=== PATIENT | female | born 1930 | race Caucasian/White ===

== ENCOUNTER → 2016-08-28 | Outpatient (CLI) | payer MEDICARE, OTHER ==
[~2016-08-28] VITALS: Ht 154.9 cm; Wt 48.5 kg
[~2016-08-28] MED LIST: AMLO10TA82 PO; ASPI-892; CALC-80; CALC600T; CLOP75TA PO; CODE118S2 PO; CQ 10; D-3; HCT25T; KCL10CCR; KCL20TCR; LEVO75TA57; LOVA20TA2 PO; LVST20T; LVT.025T; LVT.05T; LVT.1T; MAGN400T6; MAGNESIUM; NORVASC; OMG1KC; RLX60T; UBID200C; ZOLEDRONATE 5 MG/100 ML (RECLAST) BTL IV ONE; [UNRECOGNIZED DRUG - CODE]
[2016-08-28 13:53] VITALS: BP 164/59
[2016-08-28 14:45] VITALS: BP 164/59
== END ==
LOC: SDC 13:10
PROVIDERS: ATTEND Internal Medicine
DX: M81.0 Age-related osteoporosis without current pathological fracture (principal)
CPT/HCPCS: 96365

== ENCOUNTER → 2016-09-20 | Outpatient (CLI) | payer MEDICARE, OTHER ==
[~2016-09-20] MED LIST changes: -ZOLEDRONATE 5 MG/100 ML (RECLAST) BTL IV ONE
--- NOTE | 2016-09-20 12:32 | Diagnostic Imaging Report ---
EXAM: Left hip. INDICATION: Fell, left hip pain. FINDINGS: AP and lateral views were obtained. There are no prior studies available for comparison. There is no fracture, dislocation or acute bony abnormality evident. 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 The soft tissues are unremarkable. IMPRESSION: There is no evidence for an acute bony abnormality. Dictated by: Dictated on workstation # [id number]
== END ==
LOC: RAD 09:33
PROVIDERS: ATTEND Internal Medicine
DX: M25.552 Pain in left hip (principal); X58.XXXA Exposure to other specified factors, initial encounter; Y99.8 Other external cause status
CPT/HCPCS: 73502

== ENCOUNTER → 2017-08-22 | Outpatient (CLI) | payer MEDICARE, OTHER ==
--- NOTE | 2017-08-22 12:08 | Diagnostic Imaging Report ---
INDICATION: Fall with back pain. TIME OF EXAM: 11:28 a.m. Three views of the lumbar spine were obtained. Curvature is normal. There is minimal anterolisthesis of L3 on L4 and mild anterolisthesis L4 on L5. The vertebral body heights are maintained. No acute compression fracture is identified. There is multilevel degenerative disc disease with variable disc space narrowing and marginal spurring. There is multilevel facet arthropathy present. Atherosclerotic calcifications throughout the abdominal aorta are noted. IMPRESSION: Lumbar spondylosis and listhesis. No acute bony abnormality is detected. Dictated by: Dictated on workstation # [id number]
--- NOTE | 2017-08-22 12:28 | Diagnostic Imaging Report ---
INDICATION: Fall and back pain. TIME OF EXAM: 11:28 a.m. FINDINGS: Curvature and alignment of the thoracic spine is normal. Vertebral body heights are maintained. No acute compression fracture is detected. Pedicles and paraspinous line are intact. IMPRESSION: No acute bony abnormality is detected. Dictated by: Dictated on workstation # [id number]
== END ==
LOC: RAD 10:55
PROVIDERS: ATTEND Internal Medicine
DX: M47.816 Spondylosis without myelopathy or radiculopathy, lumbar region (principal); M51.36 Other intervertebral disc degeneration, lumbar region
CPT/HCPCS: 72072; 72100

== ENCOUNTER → 2017-11-22 | Outpatient (CLI) | payer MEDICARE, OTHER ==
--- NOTE | 2017-11-22 12:28 | Diagnostic Imaging Report ---
INDICATION: Chronic low back pain. TIME OF EXAM: 10:51 a.m. AP and lateral views of lumbar spine demonstrate normal curvature. There is grade 1 spondylolisthesis of L4 on L5. Vertebral body heights are maintained. No acute compression fracture is detected. There is multilevel degenerative disc disease with variable disc space narrowing and marginal spurring. Multilevel facet arthropathy is noted. The aorta is heavily calcified. IMPRESSION: Lumbar spondylosis and spondylolisthesis. No acute bony abnormality is detected. Dictated by: Dictated on workstation # [id number]
== END ==
LOC: RAD 09:37
PROVIDERS: ATTEND Internal Medicine
DX: M47.816 Spondylosis without myelopathy or radiculopathy, lumbar region (principal); M43.16 Spondylolisthesis, lumbar region
CPT/HCPCS: 72100

== ENCOUNTER → 2018-01-09 | Outpatient (CLI) | payer MEDICARE, OTHER ==
--- NOTE | 2018-01-09 10:33 | Diagnostic Imaging Report ---
INDICATION: Osteoporosis. Comparison is made with prior DEXA scan from 12/22/2015. Bone mineral analysis of the lumbar spine and both hips was performed. Bone mineral density lumbar spine L2-L4 is 1.253 with a T score 0.4. This compares with 1.247 and 0.4. Bone mineral density left femoral neck is 0.744 with T score -2.1. This compares with 0.738 and -2.2. Bone marrow density right femoral neck 0.739 with T score -2.2. This compares with 0.77 and -2.2. IMPRESSION: Continued normal bone marrow density of the lumbar spine and osteopenia bilateral femoral necks. Dictated by: Dictated on workstation # [id number]
== END ==
LOC: RAD 09:08
PROVIDERS: ATTEND Internal Medicine
DX: M81.0 Age-related osteoporosis without current pathological fracture (principal); M85.88 Other specified disorders of bone density and structure, other site
CPT/HCPCS: 77080